=== PATIENT | female | born 1960 | race Caucasian/White ===

== ENCOUNTER → 2016-07-19 | Outpatient (REF) | payer OTHER ==
[2016-07-19 09:20] LABS: BASOPHILS % (AUTO) 1 % (0-2); EOSINOPHILS # (AUTO) 0.3 10^3uL; EOSINOPHILS % (AUTO) 6 % (0-4); LYMPHOCYTES # (AUTO) 1.3 X10^3; MEAN CORPUSCULAR HEMOGLOBIN 30.6 PG (26.0-34.0); MEAN CORPUSCULAR HGB CONC 33.1 g/dL (31.0-37.0); MEAN CORPUSCULAR VOLUME 93 FL (80-100); MEAN PLATELET VOLUME 11.3 FL (6.0-9.5); MONOCYTES # (AUTO) 0.5 X10^3; MONOCYTES % (AUTO) 13 % (3-11); NEUTROPHILS # (AUTO) 1.9 X10^3; NEUTROPHILS % (AUTO) 49 % (51-67); PLATELET COUNT 213 10^3uL (150-450); WHITE BLOOD COUNT 3.97 10^3uL (4.0-11.0)
[2016-07-19 09:32] LABS: ALBUMIN 4.5 g/dL (3.4-5.0); ANION GAP 14.9 MEQ/L (3-15); CALCULATED IONIZED CALCIUM 4.5 mg/dL (3.8-4.6); TOTAL PROTEIN 7.4 g/dL (6.4-8.5)
== END ==
LOC: LAB 08:56
PROVIDERS: ATTEND Nurse Practitioner Family
DX: Z00.00 Encounter for general adult medical examination without abnormal findings (principal)
CPT/HCPCS: 80053; 80061; 85025

== ENCOUNTER → 2016-07-26 | Outpatient (CLI) | payer OTHER | LOC: RAD 09:22 | PROVIDERS: ATTEND Nurse Practitioner Family | DX: Z12.31 Encounter for screening mammogram for malignant neoplasm of breast (principal) ==